=== PATIENT | female | born 1940 | race Caucasian/White ===

== ENCOUNTER 2017-08-22 14:57 | Emergency (ER) | payer MEDICARE ==
[2017-08-22 16:30] LABS: #Lymphocytes 0.8 thou/uL (1.20-3.40); #Monocytes 0.3 thou/uL (0.11-0.59); #Neutrophils 6.8 thou/uL (1.40-6.50); %Basophils 0.2 % (0.0-1.0); %Eosinophils 0.2 % (0.0-10.0); %Lymphocytes 9.9 % (21.0-51.0); %Monocytes 3.3 % (0.0-10.0); Hematocrit 48.2 % (36.0-47.0); Mean Platelet Volume 8.7 fL (7.4-10.4); Red Blood Cell (RBC) Count 5.16 mill/uL (4.20-5.40); White Blood Cell (WBC) Count 7.9 thou/uL (4.8-10.8)
[2017-08-22 16:40] LABS: Bilirubin Negative (Negative); Blood, Urine Large (Negative); Glucose, Urine (Dipstick) Negative (Negative); Ketone, Urine Trace mg/dL (Negative); Nitrite Negative (Negative); Protein, Urine (Dipstick) 100 mg/dL (Neg-Trace); Urobilinogen 0.2 mg/dL (0.2-1.0)
[2017-08-22 16:42] LABS: Bacteria/HPF None Seen HPF (None Seen); Hyaline Casts/LPF 0-3 HYALINE CAST LPF (0-3 Hyaline); RBC/HPF GREATER THAN 50-TNTC HPF (0-3); Squamous Epithelial 0-3 HPF (0-3)
[2017-08-22 16:49] LABS: ALT (SGPT) 12 U/L (8-55); AST (SGOT) 15 U/L (5-34); Alkaline Phosphatase 124 U/L (40-150); Anion Gap 15 mmol/L (10-20); BUN (Urea Nitrogen) 16 mg/dL (9.8-20.1); Bilirubin, Total 0.3 mg/dL (0.2-1.2); Calc. Creatinine Clearance 0 mL/min (70-130); Calcium 9.2 mg/dL (7.8-10.44); Carbon Dioxide 23 mmol/L (23-31); Chloride 101 mmol/L (98-107); Estimated GFR-MDRD 60; Globulin 3.2 g/dL (2.4-3.5); Protein, Total 7.4 g/dL (6.0-8.3)
== END 2017-08-22 17:25 | disposition home or self-care (01) ==
LOC: ERS 14:57
DX: N39.0 Urinary tract infection, site not specified (principal); F17.210 Nicotine dependence, cigarettes, uncomplicated; I10 Essential (primary) hypertension; I25.3 Aneurysm of heart; R56.9 Unspecified convulsions; Z79.899 Other long term (current) drug therapy
CPT/HCPCS: 36415; 80053; 81003; 81015; 85025; 87086; 93005

== ENCOUNTER 2017-10-09 07:58 | Outpatient (CLI) | payer MEDICARE ==
--- NOTE | 2017-10-09 10:11 | CT ---
CT ABDOMEN AND PELVIS WITH AND WITHOUT IV CONTRAST: History: Hematuria. FINDINGS: Each renal collecting system, and urinary bladder are decompressed without stone evident. No filling defects are apparent within the urinary system on the delayed images. No renal masses are visible. Calcified granulomata within the solid organs are consistent with healed granulomatous disease. Lobul ated cyst is noted within the left liver lobe lateral segment. Small hiatal hernia is visible. There are prominent degenerative changes of the lumbar spine. Diverticula arise from the colon without miguel cent inflammation. Dystrophic calcifications are present within the right lower gluteus subcutaneous tissues. There is prominent calcification throughout the arterial structures. 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 Fusiform dilatation of a lower abdominal aorta measures up to 4.9 c m AP diameter and extends to the aortic bifurcation. IMPRESSION: 1. No urinary tract abnormalities are demonstrated to explain hematuria. 2. Fusiform lower abdominal aortic aneurysm, 4.9 cm. 3. Atherosclerosis. 4. Diverticulosis. No evidence of diverticulitis. 5. Small hiatal hernia. POS: [facility]
[2017-10-09] MEDS ORDERED: ISOVUE-370 76%-LOCM 1 ML ONE (16:01)
== END 2017-10-09 07:59 | disposition home or self-care (01) ==
LOC: CT 07:58
PROVIDERS: ATTEND Urology
DX: R31.0 Gross hematuria (principal); I70.90 Unspecified atherosclerosis; K44.9 Diaphragmatic hernia without obstruction or gangrene; I71.4 Abdominal aortic aneurysm, without rupture; K57.90 Diverticulosis of intestine, part unspecified, without perforation or abscess without bleeding
CPT/HCPCS: 74178

== ENCOUNTER 2017-11-18 09:34 | Outpatient (CLI) | payer MEDICARE ==
[2017-11-18 11:18] LABS: Mean Corpuscular HGB CONC 32.6 g/dL (32.0-36.0); Mean Corpuscular Hemoglobin 30.3 pg (27.0-31.0); Mean Platelet Volume 8.7 fL (7.4-10.4); Platelet Count 175 thou/uL (130-400); RBC Distribution Width 12.7 % (11.5-14.5); Red Blood Cell (RBC) Count 4.96 mill/uL (4.20-5.40); White Blood Cell (WBC) Count 7.3 thou/uL (4.8-10.8)
[2017-11-18 11:42] LABS: Anion Gap 10 mmol/L (10-20); BUN (Urea Nitrogen) 14 mg/dL (9.8-20.1); Calc. Creatinine Clearance 0 mL/min (70-130); Calcium 9.3 mg/dL (7.8-10.44); Carbon Dioxide 28 mmol/L (23-31); Chloride 103 mmol/L (98-107); Estimated GFR-MDRD 71; Glucose 107 mg/dL (83-110); Potassium 4.4 mmol/L (3.5-5.1); Sodium 137 mmol/L (136-145)
--- NOTE | 2017-11-18 13:11 | RAD ---
TWO VIEW CHEST: HISTORY: Preoperative evaluation. FINDINGS: Mild hyperexpansion with some flattening of the diaphragms. The lung corona appear clear. Vascular markings are normal. Heart size is upper normal. Aortic calcification is seen. Vascular markings a re normal. Mild degenerative changes throughout the spine. IMPRESSION: There are chronic changes, as described above. No acute lung process identified. POS: [facility]
== END 2017-11-18 09:35 | disposition home or self-care (01) ==
LOC: LABBT 09:34
PROVIDERS: ATTEND Urology
DX: Z01.818 Encounter for other preprocedural examination (principal); N32.89 Other specified disorders of bladder
CPT/HCPCS: 71046; 80048; 81001; 85027

== ENCOUNTER 2017-11-26 06:41 | Day surgery (SDC) | payer MEDICARE ==
[2017-11-18 10:04] VITALS: BMI 25.7
[2017-11-26] MEDS ORDERED: ADMIXTURE FEE IV SCH (07:45)
[2017-11-26] MEDS ORDERED: SODIUM CHLORIDE IV SCH (07:45)
[2017-11-26] MEDS ORDERED: CEFAZOLIN 1 GM, Syringe 2.5 ML in Sterile Water 7.5 ML SLOW IVP SCH (07:45)
[2017-11-26] MEDS ORDERED: MITOMYCIN IV SCH (07:45)
[2017-11-26] MEDS ORDERED: Fentanyl 250 MCG/5 ML VIAL ONE ×2 (09:51→11:36)
[2017-11-26] MEDS ORDERED: Iothalamate Meglumine 60% 50 ML VIAL FS ONE (10:48)
--- NOTE | 2017-11-26 12:10 | OP ---
DATE OF PROCEDURE: 11/26/2017 PREOPERATIVE DIAGNOSIS: Bladder tumor. POSTOPERATIVE DIAGNOSIS: Bladder tumor. PROCEDURES PERFORMED: Cystoscopy; transurethral resection of bladder tumor, less than 2 cm; bladder biopsies; fulguration; mitomycin. SURGEON: Dr. Matt. ANESTHESIA: General with laryngeal mask airway. FINDINGS: Small right bladder tumor, removed via cold biopsy. SPECIMENS: Base of right bladder tumor and the biopsies to include right and left wall dome, posteri or and trigone. COMPLICATIONS: No complications. ESTIMATED BLOOD LOSS: No blood loss. DRAIN: Remaining was a 16-Togolese Emerson with mitomycin soaks clamped. INDICATIONS: The patient is a 77-year-old female, who was found in the office and noted to have rigoberto turia and a small bladder tumor was noted. So, she was set up for resection. The patient was brought into the room by Anesthesia, laid in the table in supine position. After rec eiving general anesthetic, her legs were placed in lithotomy position. Her perineum was prepped and draped in sterile fashion. Using a 22-Togolese cystoscope and 30-degree lens, it was traversed and the bladder inspected. No other lesions were noted other than the right bladder tumor, which appeared t o be 1.5 cm and lateral to the UO. Bladder biopsies were taken first and these were sent for specime n. Then, the tumor itself was grasped with a grasper and removed in one resection. At this point, I changed to the resectoscope in order to fulgurate the bladder biopsy as well as get a deeper resecti on of the bladder tumor; however, just a small component of coagulation electricity elicited the obtu rator reflex. So, at this point, I felt it was safer to just get the cold cup biopsy and get deeper resection there, so I did this and then sent the deeper portions of the right tumor bladder base and the resectoscope was put back in and all the area was fulgurated. This was in line of the transmural ureter, so I monitored the UO and ensured that clear effuse came out without difficulty and it was n oted prior to ending the case. So, at this point, the scope was removed. A 16-Togolese Emerson was plac ed and bladder drained and then 40 mg mitomycin was instilled and clamped and it would be so in the p ostoperative period for an hour. The patient tolerated procedure well and was then awakened and ladd sferred to the PACU in stable condition.
[2017-11-26] MEDS ORDERED: Promethazine HCl 25 MG/ML VIAL IM/IV PRN (12:40)
[2017-11-26] MEDS ORDERED: Non-Formulary Medication 1 EACH PO PRN (12:40)
[2017-11-26] MEDS ORDERED: Ondansetron HCl/PF 4 MG/2 ML Vial IVP PRN (12:40)
[2017-11-26] MEDS ORDERED: Dexamethasone 20 MG/5 ML VIAL ONE (13:54)
[2017-11-26] MEDS ORDERED: ePHEDrine/0.9% NaCl/PF SYRINGE 50 mg/10 ml ONE (13:54)
[2017-11-26] MEDS ORDERED: PROPOFOL 200 MG/20 ML VIAL ONE (13:54)
[2017-11-26] MEDS ORDERED: Ondansetron HCl/PF 4 MG/2 ML Vial ONE (13:54)
[2017-11-26] MEDS ORDERED: Lidocaine 1% PF 5 ML VIAL ONE (13:54)
[2017-11-26] MEDS ORDERED: PHENYLEPHRINE-NS 100 MCG/ML 10 ML SYRINGE ONE (13:54)
== END 2017-11-26 13:48 | disposition home or self-care (01) ==
LOC: SDC 06:41
PROVIDERS: ATTEND Urology
PROC: 0TBB8ZX Excision of Bladder, Via Natural or Artificial Opening Endoscopic, Diagnostic (ICD-10-PCS; principal; 2017-11-26)
DX: C67.2 Malignant neoplasm of lateral wall of bladder (principal); I10 Essential (primary) hypertension; E78.5 Hyperlipidemia, unspecified; M19.90 Unspecified osteoarthritis, unspecified site; G40.909 Epilepsy, unspecified, not intractable, without status epilepticus; F17.210 Nicotine dependence, cigarettes, uncomplicated; I71.4 Abdominal aortic aneurysm, without rupture; Z87.440 Personal history of urinary (tract) infections; Z79.02 Long term (current) use of antithrombotics/antiplatelets; Z79.899 Other long term (current) drug therapy
CPT/HCPCS: 52234; 96374; J9280; 88305; A4216; C1758; J0690; J1100; J2001; J2405; J2704; J3010; J7050; Q9961

== ENCOUNTER 2017-12-25 10:58 | Observation (INO) | payer MEDICARE ==
[2017-12-25 11:53] LABS: #Lymphocytes 0.8 thou/uL (1.20-3.40); #Monocytes 0.2 thou/uL (0.11-0.59); %Basophils 0.4 % (0.0-1.0); %Eosinophils 0.2 % (0.0-10.0); %Lymphocytes 11.1 % (21.0-51.0); %Monocytes 3.1 % (0.0-10.0); %Neutrophils 85.2 % (42.0-75.0); Hemoglobin 16.5 g/dL (12.0-16.0); Mean Corpuscular Hemoglobin 30.6 pg (27.0-31.0); Mean Corpuscular Volume 89.9 fl (81.0-99.0); Mean Platelet Volume 8.4 fL (7.4-10.4); Platelet Count 182 thou/uL (130-400); RBC Distribution Width 12.7 % (11.5-14.5); White Blood Cell (WBC) Count 7.1 thou/uL (4.8-10.8)
[2017-12-25 12:03] LABS: PTT 34.7 SEC (22.9-36.1); Prothrombin Time 13.5 SEC (12.0-14.7)
[2017-12-25 12:06] LABS: Bilirubin Negative (Negative); Blood, Urine Trace (Negative); Clarity CLEAR (Clear); Glucose, Urine (Dipstick) 100 mg/dL (Negative); Leukocyte Negative (Negative); Nitrite Negative (Negative); Protein, Urine (Dipstick) 300 mg/dL (Neg-Trace); Specific Gravity, Urine 1.011 (1.002-1.036); Urobilinogen 0.2 mg/dL (0.2-1.0); pH, Urine 7.5 (5.0-9.0)
[2017-12-25 12:08] LABS: Bacteria/HPF None Seen HPF (None Seen); Hyaline Casts/LPF 0-3 HYALINE CAST LPF (0-3 Hyaline); Squamous Epithelial 0-3 HPF (0-3)
[2017-12-25 12:15] LABS: ALT (SGPT) 15 U/L (8-55); AST (SGOT) 17 U/L (5-34); Albumin 4.6 g/dL (3.4-4.8); Alkaline Phosphatase 132 U/L (40-150); Anion Gap 12 mmol/L (10-20); BUN (Urea Nitrogen) 13 mg/dL (9.8-20.1); Bilirubin, Total 0.3 mg/dL (0.2-1.2); Calc. Creatinine Clearance 0 mL/min (70-130); Calcium 9.5 mg/dL (7.8-10.44); Carbon Dioxide 28 mmol/L (23-31); Chloride 98 mmol/L (98-107); Estimated GFR-MDRD 69; Globulin 3.1 g/dL (2.4-3.5); Glucose 180 mg/dL (83-110); Potassium 3.9 mmol/L (3.5-5.1); Protein, Total 7.7 g/dL (6.0-8.3); Sodium 134 mmol/L (136-145)
[2017-12-25 12:20] LABS: CKMB 1.2 ng/mL (0-6.6); Troponin I Less than 0.010 ng/mL (< 0.028)
[2017-12-25 12:22] LABS: Renal Epithelial None Seen HPF (0-3); Transitional Epithelial NONE SEEN HPF (0-3)
[2017-12-25 14:28] LABS: Barbiturates Screen Detected (NotDetected); Medtox Reader # READER 1
[2017-12-25 14:29] LABS: Amphetamine Not Detected (NotDetected); Benzodiazepine Screen Not Detected (NotDetected); Cocaine Metabolite Screen Not Detected (NotDetected); Medtox Control Line Valid? VALID (VALID); Methadone Not Detected (NotDetected); Methamphetamine Not Detected (NotDetected); Opiate Screen Not Detected (NotDetected); Oxycodone Screen Not Detected (NotDetected); Phencyclidine (PCP) Not Detected (NotDetected); THC/Cannabinoid Screen Not Detected (NotDetected); Tricyclic Screen Not Detected (NotDetected)
--- NOTE | 2017-12-25 14:40 | CT ---
CT HEAD NONCOTNRAST: HISTORY: Difficulty speaking. FINDINGS: No comparison. There is no evidence of acute intracranial hemorrhage or infarct. Mild diffuse corti gena atrophy is evident. There is no mass effect or shift of midline structures. Visualized paranasa l sinuses remain well aerated. IMPRESSION: No acute intracranial abnormalities are demonstrated on noncontrast CT head. Findings were called to Janki to relay to Dr. Velázquez in the emergency department at 1149 hours. CODE CR POS: [facility]
[2017-12-25 14:42] LABS: Troponin I Less than 0.010 ng/mL (< 0.028)
--- NOTE | 2017-12-25 14:53 | CT ---
CT ARTERIOGRAM NECK WITH IV CONTRAST AND 3D MIP IMAGING CT ARTERIOGRAM HEAD WITH IV CONTRAST AND 3D MIP IMAGING: HISTORY: CVA. Facial droop. FINDINGS: Heterogeneous low-density nonspecific nodules are present with each thyroid lobe. There are degenera tive changes of the cervical spine. Emphysematous changed at the lung apices are apparent. Normal branching of the great vessels from the aortic arch is apparent with moderate arterial calcifi cation. Good contrast flow was present into each vertebral artery and each carotid system. Mild calcification of the right carotid bifurcation with less than 50% stenosis. Internal carotid ar tirso is patent. Mild to moderate calcification left carotid bifurcation with no significant stenosis. Mild intracranial internal carotid artery calcification. [place] is patent. Good flow is d emonstrated into the cerebral and cerebellar arteries. No focal aneurysm or stenosis are visible. IMPRESSION: 1. Atherosclerosis. No acute embolic event is evident. There is less than 50% stenosis left international account manager al carotid artery. 2. Chronic obstructive pulmonary disease. Findings were called to Dr. Velázquez in the emergency department at 1211 hours. CODE CR POS: [facility]
[2017-12-25] MEDS ORDERED: ISOVUE-370 76%-LOCM 1 ML ONE (14:57)
[2017-12-25 15:42] LABS: Lactic Acid 1.8 mmol/L (0.5-2.2)
[2017-12-25 17:50] LABS: Troponin I 0.012 ng/mL (< 0.028)
[2017-12-25 17:56] VITALS: BMI 26.3
[2017-12-25] MEDS ORDERED: Acetaminophen 325 MG TAB PO PRN (18:22)
[2017-12-25] MEDS ORDERED: Ondansetron ODT 4 MG TAB SL PRN (18:22)
[2017-12-25] MEDS ORDERED: Ondansetron HCl/PF 4 MG/2 ML Vial IVP PRN ×2 (18:22→20:45)
[2017-12-25] MEDS ORDERED: Ondansetron ODT 4 MG TAB PO PRN (20:45)
[2017-12-25] MEDS ORDERED: Acetaminophen 500 MG TAB PO PRN (20:45)
[2017-12-25] MEDS ORDERED: hydrALAZINE 20 MG/ML VIAL SLOW IVP PRN (20:45)
[2017-12-25] MEDS ORDERED: Docusate 100 MG CAP PO SCH (21:00)
[2017-12-25] MEDS ORDERED: Atorvastatin Calcium 40 MG TAB PO SCH (21:00)
[2017-12-25] MEDS: levETIRAcetam 500 MG TAB PO SCH (21:20)
[2017-12-25] MEDS: Famotidine 20 MG TAB PO SCH (21:20)
[2017-12-26 05:52] LABS: Anion Gap 7 mmol/L (10-20); BUN (Urea Nitrogen) 12 mg/dL (9.8-20.1); Calc. Creatinine Clearance 68 mL/min (70-130); Calcium 8.7 mg/dL (7.8-10.44); Carbon Dioxide 27 mmol/L (23-31); Cardiac Risk 3.2 (Less than 4.5); Chloride 107 mmol/L (98-107); Cholesterol 175 mg/dl (< 200 Desired); Estimated GFR-MDRD 70; Glucose 96 mg/dL (83-110); HDL Cholesterol 54 mg/dL (>60 Neg Risk); LDL Cholesterol, Calculated 102 mg/dL; Potassium 3.7 mmol/L (3.5-5.1); Sodium 137 mmol/L (136-145); Triglycerides 97 mg/dL (Less than 150)
[2017-12-26 05:57] LABS: Hemoglobin 14.1 g/dL (12.0-16.0); Lymphocytes 29 % (21-51); MDiff Complete? YES; Mean Corpuscular HGB CONC 33.7 g/dL (32.0-36.0); Mean Corpuscular Hemoglobin 30.2 pg (27.0-31.0); Mean Corpuscular Volume 89.8 fl (81.0-99.0); Mean Platelet Volume 8.5 fL (7.4-10.4); Monocytes 3 % (0-10); Neutrophil 68 % (42-75); PLT Morphology Comment Appears Adequate; Platelet Count 163 thou/uL (130-400); RBC Distribution Width 12.6 % (11.5-14.5); Red Blood Cell (RBC) Count 4.67 mill/uL (4.20-5.40); White Blood Cell (WBC) Count 7.6 thou/uL (4.8-10.8)
--- NOTE | 2017-12-26 08:07 | HP ---
DATE OF ADMISSION: 12/25/2017 PRIMARY CARE PROVIDER: Lindsey Denny M.D. CHIEF COMPLAINT: Altered mentation and confusion. HISTORY OF PRESENT ILLNESS: This is a 77-year-old female who presents to [facility] accompanied by her daughter who witnessed the patient experiencing increasing episod es of difficulty with speech, altered mentation and confusion, which began in the morning hours of . The patient apparently was noted to speak repetitive words that were unrelated to the curr ent conversation or situation. The first episode lasted approximately a minute then resolve spontane ously. The daughter reports that her mother appeared to not recognize her and was not aware of her s urroundings. No specific grand mal seizure type activity, bowel or bladder incontinence. The patien t states the episode occurred again lasting several minutes, then resolving spontaneously. The daugh kvng became alarmed at what she was seeing, calling her primary care provider's office who directed he r to seek medical attention in the emergency room. The patient does have a history of petit mal seiz ures treated with Keppra and Dilantin over the last 2-3 years. The patient denies missing any specif ic doses or taking more than she should on her anti-seizure medications. The patient denies any rece nt new medication exposures, alcohol use or illicit drug use. The patient does states she underwent a cystoscopy several weeks prior to this evaluation in 11/2017 with resection of a bladder tumor. Th e patient states that she had been taken off her Plavix that she takes chronically over the last 4-5 years for approximately 7 days before and after the procedure. The patient states she is unclear of why she is on Plavix chronically since 2012. The patient denies any unilateral weakness, difficulty with visual disturbance, but did have repetitive speech and word phrases that were unrelated to the c ontext of conversation at that time this was noted. The patient denies any unilateral weakness, faci al droop or difficulty swallowing. In the emergency room, the patient underwent general evaluation i ncluding CT imaging of the brain including CT angiogram showing no acute process or focal stenosis. The patient received aspirin 324 mg as well as intravenous normal saline x1 liter. The patient was r eferred to the stroke unit for further evaluation. PAST MEDICAL HISTORY: 1. Tobacco abuse. 2. Hypertension. 3. History of petit mal seizures, treated with Dilantin and Keppra. 4. History of aneurysm, medically managed. 5. Diverticulosis. 6. Bladder tumor, status post resection. PAST SURGICAL HISTORY: 1. Status post appendectomy. 2. Status post hysterectomy. 3. Status post tonsillectomy. 4. Status post mole removal. 5. Status post resection of bladder tumor by cystoscopy. CURRENT MEDICATIONS: 1. Plavix 75 mg 1 tab p.o. daily. 2. Phenytoin 300 mg p.o. at bedtime. 3. Lipitor 20 mg p.o. daily. 4. Losartan 100 mg 1 tab p.o. daily. 5. Metoprolol 150 mg p.o. daily. 6. Keppra 500 mg p.o. b.i.d. 7. Docusate sodium 100 mg p.o. daily. ALLERGIES: No known drug allergies. FAMILY HISTORY: Father at 60 years of age. Mother at 60 years of age due to leuke silvia. SOCIAL HISTORY: The patient is . Accompanied by her daughter and granddaughter in the hospit al. Smokes up to a pack of cigarettes daily greater for 60 years. No alcohol or illicit drug use. Lives independently. Retired nurse. REVIEW OF SYSTEMS: The following complete review of systems was negative, unless otherwise mentioned in the HPI or below: Constitutional: Weight loss or gain, ability to conduct usual activities. Sk in: Rash, itching. Eyes: Double vision, pain. ENT/Mouth: Nose bleeding, neck stiffness, pain, te nderness. Cardiovascular: Palpitations, dyspnea on exertion, orthopnea. Respiratory: Shortness of breath, wheezing, cough, hemoptysis, fever or night sweats. Gastrointestinal: Poor appetite, abdom inal pain, heartburn, nausea, vomiting, constipation, or diarrhea. Genitourinary: Urgency, frequenc y, dysuria, nocturia. Musculoskeletal: Pain, swelling. Neurologic/Psychiatric: Anxiety, depressio n. Allergy/Immunologic: Skin rash, bleeding tendency. Otherwise negative except as stated per HPI. PHYSICAL EXAMINATION: VITAL SIGNS: On admission, blood pressure 168/94, pulse 86, respiratory rate 16, temperature 98.7 de grees Fahrenheit, O2 saturation 95% on room air. GENERAL APPEARANCE: This is a 77-year-old female, alert and oriented x3, pleasant, convers ant, talkative, in no acute distress. HEENT: Pupils are equal, round, and reactive to light and accommodation. Extraocular muscles are in tact. No scleral icterus, no conjunctival injection. Nares patent. OP is clear. Teeth in fair rep air. NECK: Supple, no cervical adenopathy, no thyromegaly, no carotid bruits, no JVD appreciated. Cervic al spine with full active and passive range of motion. No meningeal signs appreciated. CHEST: Lungs are clear to auscultation bilaterally. CARDIOVASCULAR: S1, S2, without noted murmur. ABDOMEN: Rounded, soft, nontender, nondistended. Bowel sounds are positive in all four quadrants. There is no hepatosplenomegaly, no abdominal bruits, no rebound or guarding appreciated. EXTREMITIES: Warm and dry with fair turgor. No clubbing, cyanosis or asymmetric edema appreciated. Pulses palpable distally at the dorsalis pedis, posterior tibial, and popliteal arteries bilaterally . Capillary refill less than 2 seconds. NEUROLOGIC: Cranial nerves II-XII are grossly intact. No focal or lateralizing signs appreciated. PERTINENT LABORATORY AND X-RAY FINDINGS: Sodium 134, potassium 3.9, chloride 98, CO2 of 28, BUN 13, creatinine 0.80, glucose 180. Lactic acid level 2.5, calcium 9.5. LFTs within normal limits. Tropo jerson negative x1. Albumin 3.6. TSH 1.41. Prolactin level 12.5. CBC showed a white blood cell count of 7.1, hemoglobin 16.5, hematocrit 49, platelet count 182 with 85% neutrophils. PT 13.5, INR 1.0, PTT 34.7. Urinalysis positive for protein, trace blood, 7-10 wbc's per high power field. Urine drug screen dated 12/25/[address] of the brain without contrast dated 8 showed no acute intracranial process. Mild diffuse cortical atrophy noted. CT angiogram of the he ad and neck dated 12/25/2017 showed no focal extremity showed atherosclerotic changes without acute e mbolic phenomenon. Less than 50% stenosis of the left internal carotid artery. EKG dated 12/25/2017 by my interpretation shows a sinus mechanism with heart rate in the 80s. Normal R-wave progression noted in the precordial leads. Right bundle branch block pattern noted. Normal axis. T-wave invers ion in leads III and F, also noted in leads V2 through V6. ASSESSMENT AND PLAN: 1. Acute encephalopathy, etiology unclear. Questionable metabolic influence. The patient will be o bserved on the Stroke Unit. We will continue to rule out transient ischemic attack as underlying tonja ology. Obtain MRI imaging of the brain. Check fasting lipid profile in the a.m. Check 2D transthor acic echocardiogram. Check Dilantin level in the a.m. 2. Transient ischemic attack. Question of transient ischemic attack as stated in #1. See #1 for wo rkup. We will consult Neurology Service for any further recommendations. 3. Seizure disorder. We will continue Keppra 500 mg p.o. b.i.d. and Dilantin 300 mg p.o. at bedtime . Check Dilantin level in the a.m. Consult Neurology Service for further evaluation and recommendat ions. 4. Hypertension. Resume home antihypertensive medication regimen and monitor clinical response. 5. Tobacco abuse. We will offer smoking cessation resources prior to discharge. 6. Prophylaxis. Sequential compression devices while in bed. Pepcid 20 mg p.o. b.i.d. 7. Code status is FULL. Surrogate medical decision maker is the patient's daughter.
[2017-12-26] MEDS: levETIRAcetam 500 MG TAB PO SCH (08:45)
[2017-12-26] MEDS: Famotidine 20 MG TAB PO SCH (08:45)
[2017-12-26] MEDS ORDERED: Clopidogrel Bisulfate 75 MG TAB PO SCH (09:00)
[2017-12-26] MEDS ORDERED: Losartan 25 MG TAB PO SCH (09:00)
[2017-12-26 15:50] VITALS: BP 159/64; TEMP 98.4
--- NOTE | 2017-12-26 19:19 | MRI ---
MRI OF BRAIN WITHOUT CONTRAST 12/26/17 Multiplanar and multisequential imaging of the brain obtained. HISTORY: Mental status change. TIA. Correlation made to recent CT. FINDINGS: The brain shows mild cortical volume loss. Ventricles have normal size and position. Mild chronic isc hemic white matter change. No evidence of restricted diffusion. No acute infarct identified. No evide nce of mass or edema. Intracranial internal carotid arteries, proximal cerebral arteries and basilar arteries show flow voids. Paranasal sinuses are clear. Mucosal edema is seen in the right mastoid air cells. Dural venous sinuses are patent. IMPRESSION: Mild cortical atrophy and mild to moderate chronic ischemic white matter change. No evidence of acute infarct. POS: [facility]
--- NOTE | 2017-12-26 23:17 | CON ---
DATE OF CONSULTATION: 12/26/2017 ADMITTING PHYSICIAN: Dr. Philip Fitzpatrick. REASON FOR CONSULTATION: Altered mental status. HISTORY OF PRESENT ILLNESS: Ms. Villanueva is a pleasant 77-year-old female with history o f seizure disorder on Dilantin and Keppra, presented with episode of confusion. History is obtained from daughter who was present at bedside. Daughter reports that yesterday, they were sitting down at home and suddenly, she stopped responding. She was moving her right hand to change channel on the T V, but there is no remote control in her hand. When she called out her name, she did not respond. S he was confused. This episode lasted for approximately 1-2 minutes and then resolved. She had no re collection of this event. Few hours later, she had another event, which was similar in nature, whic h prompted her to call her primary care physician who advised her to seek medical attention in to the emergency room. Patient was brought to the [facility] emergency room while she was waiting in the [facility] room, she had another episode of confusion, which lasted approximately 2 to 3 minutes. There were no tonic-clonic convulsions, no tongue biting, no loss of bladder control. She had a retrograde amnesia of the event. She did not have any more spells since that time she did not recognize her da ughter until after a few minutes. There was again no tongue biting, no loss of bladder control, or l oss of consciousness with this episode. PAST MEDICAL HISTORY: Significant for hypertension, history of seizure disorder, history of aneurysm , diverticulosis, bladder tumor, status post resection. PAST SURGICAL HISTORY: Significant for appendectomy, hysterectomy, tonsillectomy, bladder resection. CURRENT MEDICATIONS: Include Plavix 75 mg daily, Dilantin 300 mg at bedtime, Lipitor 20 mg daily, lo sartan 100 mg daily, metoprolol 150 mg daily, Keppra 500 mg b.i.d. and Docusate 100 mg daily. ALLERGIES: No known drug allergies. FAMILY HISTORY: Significant for daughter with history of seizure. SOCIAL HISTORY: She is a . She denies alcohol use or illicit drug use. She does smoke half to a pack of cigarettes on a daily basis. REVIEW OF SYSTEMS: As mentioned, which was negative. PHYSICAL EXAMINATION: VITAL SIGNS: Blood pressure 159/64, pulse of 63, temperature of 98.4, respirations of 16, O2 sats 95 % on room air. GENERAL: Well-developed, well-nourished female in no apparent distress. RESPIRATORY: Clear to auscultation bilaterally. CARDIOVASCULAR: Regular rate and rhythm. NEUROLOGIC: Mental status: The patient is awake, alert, oriented x3. Speech and language: Fluent speech. Cranial nerves: Pupils are 3 mm and reactive. Visual corona are intact. No sore muscles a re intact. No nystagmus noted. Face is symmetric. Tongue and uvula are midline. Motor exam showed normal tone and bulk with 5/5 strength in both upper and lower extremities. Sensory: Sensation is intact and symmetric. Deep tendon reflexes 2+ reflexes in both upper and lower extremities. [place] i: Plantar responses flexion bilaterally. Coordination intact to fozicx-szke-eyihpg and finger yaniv ing bilaterally. Gait and Romberg are normal. LABORATORY DATA: Reviewed, which included CBC, CMP, lipid profile, urinalysis and urine drug screen, which is significant for hemoglobin of 16.5, hematocrit of 48.5, otherwise unremarkable. IMAGING STUDIES: MRI brain without contrast was reviewed for which official report is still pending. I did not appreciate any acute intracranial abnormality. CT angiogram of the head and neck were re viewed, which showed no hemodynamically significant intracranial or extracranial vascular abnormality . IMPRESSION: Episode of confusion, likely complex partial seizure. ASSESSMENT AND PLAN: Ms. Villanueva is a pleasant 77-year-old female, who presented with a n episode of confusion based on the description of the spell, this is likely complex partial seizure. At this time, I would recommend increasing the Keppra to 750 mg twice daily. I will recommend cont inue on Dilantin 300 mg at bedtime. She is okay to be discharged to home with outpatient followup ap pointment in my clinic in 4 to 6 weeks.
--- NOTE | 2017-12-27 04:39 | DIS ---
DATE OF ADMISSION: 12/25/2017 DATE OF DISCHARGE: 12/26/2017 DISCHARGE DIAGNOSES: 1. Acute encephalopathy, questionable etiology, likely related to seizure disorder. 2. Seizure disorder with recurrence. 3. Hypertension, stable. 4. Tobacco abuse. CONSULTATIONS: Dr. Carol Bermudez with Neurology Service. PERTINENT LABORATORY AND X-RAY FINDINGS: Complete metabolic profile within normal limits. Lactic ac id level 2.5. TSH 1.41. Prolactin level 12.5, total cholesterol 175, triglycerides 97, HDL 54, LDL 102. CBC showed white blood cell count ranging between 7.1-7.6, hemoglobin ranged between 14.1-16.5. Urine drug screen positive for barbiturates. Phenytoin level 4.9. CT of the brain without contras t dated 12/25/2017 showed no acute intracranial process. CT angiogram of the head and neck showed no evidence of focal stenosis. Atherosclerosis without evidence of acute embolic event noted. MRI of the brain dated 12/26/2017 showed no acute intracranial process. HOSPITAL COURSE: The patient was observed on the stroke unit after initially presenting with altered mentation and concern for TIA. The patient underwent TIA workup in addition to evaluation for poten tial recurrent seizures. The patient with a history of seizures on phenytoin and Keppra. Neuro imag ing was essentially unremarkable as to structural defect and metabolic workup was unrevealing. A 2D transthoracic echocardiogram was performed; however, results are pending at the time of this dictatio n. Telemetry monitoring showed a sinus mechanism without evidence of acute arrhythmia or dysrhythmia . The patient was evaluated by the Neurology Service with current recommendations to increase Keppra to 750 mg b.i.d. The patient will follow up on an outpatient basis with Neurology Service after dis charge. Overall, the patient remained clinically stable during the hospital course, tolerating regul ar oral intake, and ambulating without assistance or difficulty. I have examined the patient at the time of discharge and discussed lab and x-ray findings, as well as plans for discharge. The patient and family are in agreement and ready for discharge on 12/26/2017. DISCHARGE MEDICATIONS: 1. Lipitor 20 mg 1 tab p.o. daily. 2. Plavix 75 mg 1 tab p.o. daily. 3. Docusate sodium 100 mg p.o. at bedtime. 4. Keppra 750 mg p.o. b.i.d. 5. Losartan 100 mg p.o. daily. 6. Metoprolol succinate 150 mg p.o. at bedtime. 7. Phenytoin 300 mg p.o. at bedtime. FOLLOWUP: The patient will follow up with her primary care provider, Dr. Lindsey Denny within 7 d ays of discharge. The patient will follow up with Dr. Carol Bermudez 2-3 weeks after discharge. CONDITION ON DISCHARGE: Stable. ACTIVITY: Ad-jasiel. DIET: Heart healthy. CODE STATUS: FULL. DISPOSITION: Home on 12/26/2017.
--- NOTE | 2017-12-28 19:59 | EKG ---
Test Reason : Blood Pressure : / mmHG Vent. Rate : 087 BPM Atrial Rate : 087 BPM P-R Int : 156 ms QRS Dur : 120 ms QT Int : 410 ms P-R-T Axes : 085 071 -15 degrees QTc Int : 493 ms Sinus rhythm with Premature atrial complexes with Abberant conduction Possible Left atrial enlargement Right bundle branch block Cannot rule out Inferior infarct , age undetermined T wave abnormality, consider lateral ischemia Abnormal ECG Confirmed by BLAYNE SANDY ([id number]), graphics editor LINA BARTLETT ([id number]) on 12/28/2017 7:59:20 PM Referred By: Confirmed By:BLAYNE SANDY
== END 2017-12-26 20:07 | disposition home or self-care (01) ==
LOC: ERS 10:58 → 2SE 16:37
PROVIDERS: ADMIT Family Medicine; ATTEND Family Medicine
DX: Z79.899 Other long term (current) drug therapy; G93.40 Encephalopathy, unspecified; I10 Essential (primary) hypertension; G40.909 Epilepsy, unspecified, not intractable, without status epilepticus; F17.210 Nicotine dependence, cigarettes, uncomplicated
CPT/HCPCS: 70450; 70496; 70498; 70551; 80048; 80061; 80185; 80306; 82140; 82553; 82962; 83605; 84146; 84484 ×2; 85007; 85027; 85610; 85730; 93005; 93306; 94760; 96360; 96361; 99285; G0378; 36415; 36416; 80053; 81003; 81015; 84443; 85025

== ENCOUNTER 2018-11-09 12:18 | Emergency (ER) | payer MEDICARE ==
[2018-11-09] MEDS ORDERED: Sodium Chloride 0.9% 100 ML ONE (13:07)
[2018-11-09] MEDS ORDERED: cefTRIAXone\\ROCEPHIN 2 GM VIAL ONE (13:07)
[2018-11-09 13:16] LABS: #Eosinphils 0.1 thou/uL (0.0-0.7); #Lymphocytes 1.6 thou/uL (1.20-3.40); #Monocytes 0.6 thou/uL (0.11-0.59); #Neutrophils 5.4 thou/uL (1.40-6.50); %Basophils 0.5 % (0.0-1.0); %Eosinophils 1.2 % (0.0-10.0); %Lymphocytes 20.8 % (21.0-51.0); %Monocytes 7.4 % (0.0-10.0); %Neutrophils 70.1 % (42.0-75.0); Hemoglobin 16.6 g/dL (12.0-16.0); Mean Corpuscular HGB CONC 34.5 g/dL (32.0-36.0); Mean Corpuscular Volume 87.1 fL (78.0-98.0); Mean Platelet Volume 9.1 fL (7.4-10.4); Platelet Count 200 thou/uL (130-400); RBC Distribution Width 11.7 % (11.5-14.5); Red Blood Cell (RBC) Count 5.52 mill/uL (4.20-5.40); White Blood Cell (WBC) Count 7.6 thou/uL (4.8-10.8)
[2018-11-09 13:33] LABS: ALT (SGPT) 15 U/L (8-55); AST (SGOT) 16 U/L (5-34); Albumin 4.1 g/dL (3.4-4.8); Alkaline Phosphatase 127 U/L (40-150); Anion Gap 14 mmol/L (10-20); BUN (Urea Nitrogen) 13 mg/dL (9.8-20.1); Bilirubin, Total 0.3 mg/dL (0.2-1.2); Calc. Creatinine Clearance 0 mL/min (70-130); Calcium 9.5 mg/dL (7.8-10.44); Carbon Dioxide 25 mmol/L (23-31); Chloride 106 mmol/L (98-107); Estimated GFR-MDRD 63; Globulin 3.1 g/dL (2.4-3.5); Glucose 145 mg/dL (83-110); Potassium 3.9 mmol/L (3.5-5.1); Protein, Total 7.2 g/dL (6.0-8.3); Sodium 141 mmol/L (136-145)
--- NOTE | 2018-11-09 13:38 | RAD ---
2 VIEW CHEST: Date: 11/09/18 INDICATION: Cough. COMPARISON: 11/18/17. FINDINGS: Lungs are hyperinflated. There is patchy left basilar density. Mild pleural based density seen at the inferior right chest. Cardiac silhouette is mildly enlarged. There is vascular calcification. [place]se[place] s degenerative changes are present. IMPRESSION: 1. Patchy left basilar density indicative of pneumonia. 2. COPD. 3. Mild pleural based density inferior right chest may be related to pleural thickening or small vol ume pleural fluid with adjacent atelectasis. POS: [facility]
[2018-11-09] MEDS ORDERED: Azithromycin 500 MG VIAL ONE (14:04)
[2018-11-09 14:11] LABS: Base Excess-Venous -0.2 mmol/L (-2.0 to 3.0); Bicarbonate (HCO3v) 24.6 mmol/L (22.0-28.0); CO2 Tension (PvCO2) 39.8 mmHg (40.0-50.0); Calcium, Ionized 1.05 mmol/L (See Comments:); Chloride 109 mmol/L (98-107); Hemoglobin - Calc 16.9 g/dL (12.0-16.0); O2 Tension (PvO2) 53.5 mmHg (35.0-45.0); Potassium 3.8 mmol/L (3.5-5.1); Sodium 141 mmol/L (138-145); T. Carbon Dioxide 25.8 mmol/L (22.0-28.0); pH (Venous) 7.399 (7.320-7.430); vO2 Saturation-calc 87.4 % (60.0-85.0)
== END 2018-11-09 15:39 | disposition home or self-care (01) ==
LOC: SCSER 12:18
DX: J18.1 Lobar pneumonia, unspecified organism (principal); F17.210 Nicotine dependence, cigarettes, uncomplicated; Z71.6 Tobacco abuse counseling; Z79.899 Other long term (current) drug therapy; I10 Essential (primary) hypertension
CPT/HCPCS: 36415; 71046; 80053; 82330; 82803; 83605; 85025; 87040; 94640; 94664; 96365; 96367; 99406; J0456; J0696; J7050; J7620

== ENCOUNTER 2019-05-05 17:13 | Emergency (ER) | payer MEDICARE | END 2019-05-05 18:26 | disposition left against medical advice (07) | LOC: ERS 17:13 | DX: Z53.21 Procedure and treatment not carried out due to patient leaving prior to being seen by health care provider (principal) ==

== ENCOUNTER 2019-05-05 18:43 | Emergency (ER) | payer MEDICARE ==
[2019-05-05] MEDS ORDERED: Fleet Enema 133 ML BOT ONE (19:27)
== END 2019-05-05 20:13 | disposition home or self-care (01) ==
LOC: SCSER 18:43
DX: K59.00 Constipation, unspecified (principal); I10 Essential (primary) hypertension; F17.210 Nicotine dependence, cigarettes, uncomplicated; Z79.899 Other long term (current) drug therapy
CPT/HCPCS: 99283

== ENCOUNTER 2020-02-18 17:36 | Observation (INO) | payer MEDICARE, OTHER ==
[2020-02-18] MEDS ORDERED: methylPREDNISolone Sod Succ/PF 125 MG/2 ML VIAL ONE (18:25)
[2020-02-18 18:40] LABS: #Eosinphils 0.2 thou/uL (0.0-0.7); #Lymphocytes 0.7 thou/uL (1.20-3.40); #Monocytes 0.7 thou/uL (0.11-0.59); #Neutrophils 10.7 thou/uL (1.40-6.50); %Basophils 0.2 % (0.0-1.0); %Eosinophils 1.4 % (0.0-10.0); %Lymphocytes 5.6 % (21.0-51.0); %Monocytes 5.7 % (0.0-10.0); %Neutrophils 87.1 % (42.0-75.0); Hemoglobin 16.1 g/dL (12.0-16.0); Mean Corpuscular HGB CONC 32.4 g/dL (32.0-36.0); Mean Corpuscular Hemoglobin 29.7 pg (27.0-31.0); Mean Corpuscular Volume 91.7 fL (78.0-98.0); Mean Platelet Volume 9.4 fL (7.4-10.4); Platelet Count 149 thou/uL (130-400); RBC Distribution Width 12.4 % (11.5-14.5); Red Blood Cell (RBC) Count 5.44 mill/uL (4.20-5.40); White Blood Cell (WBC) Count 12.2 thou/uL (4.8-10.8)
--- NOTE | 2020-02-18 19:02 | RAD ---
Portable frontal chest radiograph: 02/18/2020 COMPARISON: 11/09/2018 HISTORY: Productive cough FINDINGS: New perihilar and bibasilar interstitial prominence. Blunting of costophrenic angle suggest s small bilateral pleural effusions. No pneumothorax. No lobar consolidation. Heart and mediastinal contours are stable. There is atherosclerotic calcification of the aortic arch. IMPRESSION: New perihilar and bibasilar interstitial prominence. Small bilateral pleural effusions. F indings suggest pulmonary edema. Infectious pneumonitis is a possibility as well. Recommend follow-up imaging following treatment to document resolution.
[2020-02-18 19:12] LABS: ALT (SGPT) 12 U/L (8-55); AST (SGOT) 15 U/L (5-34); Albumin 4.2 g/dL (3.4-4.8); Alkaline Phosphatase 121 U/L (40-110); Anion Gap 16 mmol/L (10-20); BUN (Urea Nitrogen) 14 mg/dL (9.8-20.1); Bilirubin, Total 0.7 mg/dL (0.2-1.2); Calc. Creatinine Clearance 0 mL/min (70-130); Calcium 9.2 mg/dL (7.8-10.44); Carbon Dioxide 26 mmol/L (23-31); Chloride 99 mmol/L (98-107); Estimated GFR-MDRD 61; Globulin 3.3 g/dL (2.4-3.5); Glucose 143 mg/dL (83-110); Potassium 4.1 mmol/L (3.5-5.1); Protein, Total 7.5 g/dL (6.0-8.3); Sodium 137 mmol/L (136-145)
[2020-02-18] MEDS ORDERED: Azithromycin 500 MG VIAL ONE (19:36)
[2020-02-18] MEDS ORDERED: cefTRIAXone\\ROCEPHIN 2 GM VIAL ONE (19:36)
--- NOTE | 2020-02-18 20:50 | PDOC.FPRHP ---
- History of Present Illness Chief Complaint: SOB History of Present Illness: 79 yo pt with COPD comes in with worsening SOB. Started last night. Coughing clear and white stuff up. Denies any fever or chills. Denies any chest pain. Reports tingling from carpal tunnel. Pt takes prune juice at night for constipation. No UTI sx's reported since finishing abx. Reports being tx for UTI one week ago. Pt reports having headache this morning and states it was gone. Hasn't been around any sick contacts. Live at [facility]. No reported cases. PMH: Seizures- hasn't had one since on keppra 750 2x a day and dilantin 100mg 3 at night, Triple AAA- reports been awhile since had imaging, Removed tumor off bladder about year ago and going to [facility]. Medications: Keppra, Cholesterol meds, atorvastatin 40mg night, Plavix 75 mg nightly, Amlodipine 10 mg, Losartan 100 mg daily, Metoprolol 150 mg daily Total hysterectomy, appendectomy, tonsilectomy FH: Mother- lung cancer, Dad- heart dz \ SH: Smoke since age 15, Quit drinking since starting keppra, Denies illicit drug use. - Allergies/Adverse Reactions Allergies Allergy/AdvReac Type Severity Reaction Status Date / Time ciprofloxacin [From Cipro] Allergy Verified 02/18/20 23:21 - Home Medications Medication Instructions Recorded Confirmed Type Clopidogrel Bisulfate [Plavix] 75 mg PO DAILY 11/18/17 02/18/20 History Losartan Potassium 100 mg PO DAILY 11/18/17 02/18/20 History Metoprolol Succinate 1.5 tab PO HS 11/18/17 02/18/20 History Phenytoin Sodium Extended 300 mg PO HS 11/18/17 02/18/20 History levETIRAcetam [Keppra] 750 mg PO BID #0 12/26/17 02/18/20 Rx Amlodipine [Norvasc] 2 tab PO DAILY 02/18/20 02/18/20 History Atorvastatin Calcium [Lipitor] 40 mg PO HS 02/18/20 02/18/20 History Sennosides/Docusate Sodium 1 each PO HS 02/18/20 02/18/20 History [Docusate Sodium-Sennosides Tab] Comments: Reviewed medications and medications above are correct. - History PMHx: PSHx: FHx: Social: - Review of Systems General: denies: fever/chills, weight/appetite/sleep changes ENT: reports: rhinorrhea. denies: nasal congestion Respiratory: reports: cough, shortness of breath. denies: congestion, exercise intolerance Cardiovascular: reports: edema (reports some swelling in ankles last few days). denies: chest pain, palpitation, orthopnea Gastrointestinal: denies: nausea, vomiting, diarrhea, constipation, abdominal pain, GI bleeding Genitourinary: denies: incontinence, dysuria, polyuria Skin: reports: rashes. denies: lesions Musculoskeletal: denies: pain, tenderness Neurological: denies: numbness, seizure, weakness Psychological: denies: anxiety, depression - Vital signs BP: [182/90] HR: [85] RR: [25] Tmax: [100.3] Pox: [98]% on [2L] Wt: [68 kg] - Physical Exam Constitutional: awake, alert and oriented, well developed -Constitutional: Pt breathing a little fast HEENT: conjunctiva clear, no scleral icterus, grossly normal vision, grossly normal hearing, normal nasal mucosa, MMM Neck: supple, trachea midline, no JVD Heart: RRR, normal S1/S2, no murmurs/rubs/gallops, pulses present, no edema Lungs: good air movement, no rales/rhonchi, no wheezing, no retractions -Lungs: Some mild crackles noted in lower lobes. Pt tachypnic, reports feeling better Abdomen: soft, non-tender, bowel sounds present, no masses/distention, no hernias Musculoskeletal: ROM grossly normal Neurological: no focal deficit, normal sensation Skin: no rash/lesions, good turgor, capillary refill <2 seconds Heme/Lymphatic: no unusual bruising or bleeding Psychiatric: normal mood and affect, good judgment and insight, intact recent and remote memory FMR H&P: Results - Labs Result Diagrams: 02/19/20 05:05 02/18/20 18:20 Lab results: WBC 12.2 thou/uL (4.8-10.8) H 02/18/20 18:20 Hgb 16.1 g/dL (12.0-16.0) H 02/18/20 18:20 Hct 49.9 % (36.0-47.0) H 02/18/20 18:20 MCV 91.7 fL (78.0-98.0) 02/18/20 18:20 Plt Count 149 thou/uL (130-400) 02/18/20 18:20 Neutrophils % 87.1 % (42.0-75.0) H 02/18/20 18:20 Sodium 137 mmol/L (136-145) 02/18/20 18:20 Potassium 4.1 mmol/L (3.5-5.1) 02/18/20 18:20 Chloride 99 mmol/L (98-107) 02/18/20 18:20 Carbon Dioxide 26 mmol/L (23-31) 02/18/20 18:20 BUN 14 mg/dL (9.8-20.1) 02/18/20 18:20 Creatinine 0.89 mg/dL (0.6-1.1) 02/18/20 18:20 Glucose 143 mg/dL (83-110) H 02/18/20 18:20 Lactic Acid 1.5 mmol/L (0.5-2.2) 02/18/20 19:39 Calcium 9.2 mg/dL (7.8-10.44) 02/18/20 18:20 Total Bilirubin 0.7 mg/dL (0.2-1.2) 02/18/20 18:20 AST 15 U/L (5-34) 02/18/20 18:20 ALT 12 U/L (8-55) 02/18/20 18:20 Alkaline Phosphatase 121 U/L (40-110) H 02/18/20 18:20 B-Natriuretic Peptide 255.9 pg/mL (0-100) H 02/18/20 18:20 Serum Total Protein 7.5 g/dL (6.0-8.3) 02/18/20 18:20 Albumin 4.2 g/dL (3.4-4.8) 02/18/20 18:20 - Radiology Interpretation Chest x-ray Status: image reviewed by me, report reviewed by me Additional comment: New perihilar and bibasilar interstitial prominence. Small bilateral pleural effusions. Findings suggest pulmonary edema. Infectious penumonitis is a possibility as well. Recommend f/u imaging following tx to document resolution. FMR H&P: A/P - Problem List (1) COPD exacerbation Current Visit: Yes Status: Acute Code(s): J44.1 - CHRONIC OBSTRUCTIVE PULMONARY DISEASE W (ACUTE) EXACERBATION (2) Diastolic CHF Current Visit: Yes Status: Acute Code(s): I50.30 - UNSPECIFIED DIASTOLIC ( CONGESTIVE) HEART FAILURE (3) Sepsis Current Visit: Yes Status: Acute Code(s): A41.9 - SEPSIS, UNSPECIFIED ORGANISM (4) Hypertension Current Visit: Yes Status: Acute Code(s): I10 - ESSENTIAL (PRIMARY) HYPERTENSION (5) Seizure Current Visit: Yes Status: Acute Code(s): R56.9 - UNSPECIFIED CONVULSIONS (6) Abdominal aortic aneurysm Current Visit: Yes Status: Acute Code(s): I71.4 - ABDOMINAL AORTIC ANEURYSM , WITHOUT RUPTURE - Plan Sepsis 2/2 COPD exacerbation -WBC 12.2 and pt Tachypnic w/ RR in 20's. Likely source is infectious pneumonitis -Procal pending. Strep and legionella urinary ag pending. -COVID swab pending. -Rocephin and Azithromycin for tx -Prednisone 40 mg burst -Duonebs sal q4hr. q6hr prn as needed Diastolic CHF exacerbation -BNP elevated to 200 range. Reports some ankle swelling last few days. CXR shows some component of fluid overload. Likely contributing to SOB with COPD exacerbation. -ECHO 12/2017 showed preserved EF w/ grade 1/3 diastolic dysfunction -Repeat ECHO ordered -Administered 1 dose 20 mg IV lasix. If helps with resp status and pending echo may continue daily -strict I&Os HTN -continued home meds -BP elevated, continue to trend and adjust medications as needed -Hydralzine IV prn for pressures above systolic pressure above 180 Hx seizures -continue home meds Hx AAA Tobacco Abuse -counseled on cessation GERD ppx: tums prn DVT ppx: Lovenox Diet: HH Dispo: Admit for COPD exacerbation w/ likely combined mild component of fluid overload. COVID PUI. Await echo and monitor resp status FMR H&P: Upper Level - Plan Date/Time: 02/18/202046 I, [], have evaluated this patient and agree with findings/plan as outlined by international operations manager resident. Pertinent changes/additions are listed here. Addendum - Attending - Attending Attestation Date/Time: 02/19/201920 I personally evaluated the patient and discussed the management with Dr. Valadez last night. I agree with the History, Examination, Assessment and Plan documented above with any addition or exceptions noted below.
[2020-02-18] MEDS ORDERED: predniSONE 20 MG TAB PO SCH (22:41)
[2020-02-18] MEDS ORDERED: Acetaminophen 650 MG Suppository PR PRN (22:41)
[2020-02-18] MEDS ORDERED: Acetaminophen 325 MG TAB PO PRN (22:41)
[2020-02-18] MEDS ORDERED: Ondansetron ODT 4 MG TAB PO PRN (22:41)
[2020-02-18] MEDS ORDERED: Enoxaparin Sodium 40 MG/0.4 ML SYRINGE SC SCH (22:41)
[2020-02-18] MEDS ORDERED: Ondansetron PF 4 MG/2 ML Vial IVP PRN (22:41)
[2020-02-18] MEDS ORDERED: Calcium Carbonate 500 MG ChewTAB PO PRN (22:41)
[2020-02-18 23:04] VITALS: BMI 24.5
[2020-02-18] MEDS: Furosemide 20 MG/2 ML VIAL SLOW IVP SCH ×2 (23:06→23:35)
[2020-02-18] MEDS ORDERED: Albuterol 200 PUFF (6.7GM INHALER) INH PRN (23:09)
[2020-02-18] MEDS ORDERED: Albuterol 200 PUFF (6.7GM INHALER) INH SCH (23:15)
[2020-02-18 23:26] LABS: Troponin I 0.026 ng/mL (< 0.028)
[2020-02-19 02:23] LABS: Troponin I 0.011 ng/mL (< 0.028)
[2020-02-19] MEDS: Albuterol 200 PUFF (6.7GM INHALER) INH SCH ×6 (03:15→21:31)
[2020-02-19 05:52] LABS: #Eosinphils 0.1 thou/uL (0.0-0.7); #Lymphocytes 0.5 thou/uL (1.20-3.40); #Monocytes 0.3 thou/uL (0.11-0.59); #Neutrophils 11.8 thou/uL (1.40-6.50); %Basophils 0.1 % (0.0-1.0); %Eosinophils 0.4 % (0.0-10.0); %Monocytes 2.4 % (0.0-10.0); Hemoglobin 14.6 g/dL (12.0-16.0); Hypochromia SLIGHT = 6-15 cells (100X) (0-5/hpf); MDiff Complete? YES; Mean Corpuscular HGB CONC 29.6 g/dL (32.0-36.0); Mean Corpuscular Hemoglobin 27.7 pg (27.0-31.0); Mean Corpuscular Volume 93.6 fL (78.0-98.0); Mean Platelet Volume 9.2 fL (7.4-10.4); Platelet Count 151 thou/uL (130-400); Platelet Morphology Comment Appears Adequate; RBC Distribution Width 12.4 % (11.5-14.5); Red Blood Cell (RBC) Count 5.27 mill/uL (4.20-5.40); White Blood Cell (WBC) Count 12.6 thou/uL (4.8-10.8)
--- NOTE | 2020-02-19 07:13 | PDOC.FM ---
- Subjective Subjective: Ms. Villanueva says that her SOB has improved. Has chronic cough but has had some thicker mucous recently. Knows she has COPD but has never needed consistent inhalers. Says that she is going to stop smoking when she gets home. Had reported comprehensive pre-op eval by Dr. Bui that was normal per patient. - Objective Vital Signs & Weight: Vital Signs (12 hours) Temp Pulse Resp BP BP Pulse Ox 02/19/20 06:10 98.0 F 66 20 146/66 H 93 L 02/18/20 22:07 98.3 F 83 18 167/78 H 99 Weight Weight 68.991 kg Result Diagrams: 02/19/20 05:05 02/18/20 18:20 Phys Exam - Physical Examination Constitutional: NAD Respiratory: no wheezing (decreased breath sounds), clear to auscultation bilateral Cardiovascular: RRR, no significant murmur Gastrointestinal: soft, non-tender Musculoskeletal: no edema Neurological: non-focal Psychiatric: normal affect Skin: normal turgor Dx/Plan - Plan Plan: Sepsis 2/2 COPD exacerbation, improved -WBC 12.2 and pt Tachypnic w/ RR in 20's initially -Strep and legionella urinary ag pending. -COVID negative. Procal 0.1->0.1 will continue to trend. -Rocephin 02/17. Discontinue azithro -Prednisone 40 mg daily x5 days -Duonebs sal q4hr. q6hr prn as needed Diastolic CHF exacerbation -BNP elevated to 200 range. Reports some ankle swelling last few days. CXR shows some component of fluid overload. Likely contributing to SOB with COPD exacerbation. -ECHO 12/2017 showed preserved EF w/ grade 1/3 diastolic dysfunction -Request [facility] records as reportedly had complete normal workup a few months ago -Administered 1 dose 20 mg IV lasix. -strict I&Os HTN -continued home meds -Hydralzine IV prn for pressures above systolic pressure above 180 Hx seizures -continue home meds Hx AAA Tobacco Abuse -counseled on cessation GERD ppx: tums prn DVT ppx: Lovenox Diet: HH Dispo: Continue treatment for COPD exacerbation, requiring O2, continue to wean as tolerated. Addendum - Attending - Attending Attestation Date/Time: 02/19/20 [id number] I personally evaluated the patient and discussed the management with Dr. Dorman. I agree with the History, Examination, Assessment and Plan documented above with any addition or exceptions noted below. Patient here for hypoxia in setting of likely COPD exacerbation. She is not currently on medical therapy for this other than an "inhaler". She continues to smoke but reports desire to stop. We will continue abx, steroids, and monitor breathing status. COVID negative.
[2020-02-19] MEDS: Clopidogrel Bisulfate 75 MG TAB PO SCH (08:00)
[2020-02-19] MEDS: predniSONE 20 MG TAB PO SCH (08:00)
[2020-02-19] MEDS: Atorvastatin Calcium 20 MG TAB PO SCH ×2 (08:00→08:26)
[2020-02-19] MEDS: levETIRAcetam 500 MG TAB PO SCH ×2 (08:01→21:01)
[2020-02-19] MEDS: Losartan 25 MG TAB PO SCH (08:02)
[2020-02-19] MEDS ORDERED: Aspirin Chewable 81 MG TAB PO SCH (09:00)
[2020-02-19] MEDS ORDERED: Azithromycin 250 MG TAB PO SCH (09:00)
[2020-02-19 10:43] LABS: SARS-CoV-2 MS2 Positive; SARS-CoV-2 N Gene Negative; SARS-CoV-2 S Gene Negative; SARS-CoV-2 orf1ab Negative
[2020-02-19 11:51] LABS: Legionella Urinary Ag Negative (Negative); Strep pneumo Urine Ag NEGATIVE (NEGATIVE)
[2020-02-19] MEDS ORDERED: cefTRIAXone\\ROCEPHIN 2 GM in Sodium Chloride 0.9% 100 ML IVPB SCH (20:00)
[2020-02-19] MEDS ORDERED: Atorvastatin Calcium 20 MG TAB PO SCH (21:00)
[2020-02-19] MEDS: Enoxaparin Sodium 40 MG/0.4 ML SYRINGE SC SCH (21:01)
[2020-02-19] MEDS: guaiFENesin ER 600 MG TAB PO SCH (21:02)
[2020-02-20] MEDS: Albuterol 200 PUFF (6.7GM INHALER) INH SCH ×6 (03:58→22:01)
--- NOTE | 2020-02-20 06:33 | PDOC.FM ---
- Subjective Subjective: Ms. Villanueva is feeling better. Breathing well, just weaned off O2. Says nebs dont really help. Having clear productive cough, feels mucinex helping to loosen it up. Feels constipated. - Objective Vital Signs & Weight: Vital Signs (12 hours) Temp Pulse Resp BP BP Pulse Ox 02/20/20 03:55 97.8 F 73 18 144/70 H 92 L 02/20/20 00:00 97.8 F 65 18 143/69 H 92 L 02/19/20 20:00 98.5 F 71 18 125/67 92 L Weight Weight 68.991 kg I&O: 02/18/20 02/19/20 02/20/20 06:59 06:59 06:59 Intake Total 2200 Output Total 300 Balance 1900 Result Diagrams: 02/19/20 05:05 02/18/20 18:20 Phys Exam - Physical Examination Constitutional: NAD Respiratory: no wheezing, clear to auscultation bilateral (decreased breath sounds) Cardiovascular: RRR, no significant murmur Gastrointestinal: soft, non-tender Musculoskeletal: no edema Neurological: non-focal Psychiatric: normal affect Skin: normal turgor Dx/Plan - Plan Plan: Sepsis 2/2 COPD exacerbation, improved -WBC 12.2 and pt Tachypnic w/ RR in 20's initially -Strep and legionella urinary ag negative -COVID negative. Procal 0.1->0.1 -Rocephin 02/17. Discontinue azithro. Will transition to PO today. -Prednisone 40 mg daily x5 days -Duonebs sal and prn Diastolic CHF exacerbation, resolved -BNP elevated to 200 range. Reports some ankle swelling last few days. CXR shows some component of fluid overload. Likely contributing to SOB with COPD exacerbation. -ECHO 12/2017 showed preserved EF w/ grade 1/3 diastolic dysfunction -Request [facility] records as reportedly had complete normal workup a few months ago -Administered 1 dose 20 mg IV lasix. -strict I&Os, appears euvolemic now HTN -continued home meds -Hydralzine IV prn for pressures above systolic pressure above 180 Hx seizures -continue home meds Hx AAA Tobacco Abuse -counseled on cessation, patient plans to quit GERD ppx: tums prn DVT ppx: Lovenox Diet: HH Dispo: Just weaned off O2, transition to PO abx today, likely d/c tomorrow.
[2020-02-20] MEDS: guaiFENesin ER 600 MG TAB PO SCH ×2 (09:17→20:34)
[2020-02-20] MEDS: predniSONE 20 MG TAB PO SCH (09:17)
[2020-02-20] MEDS: Polyethylene Glycol 3350 17 GM Packet PO SCH ×2 (09:18→18:39)
[2020-02-20] MEDS: Clopidogrel Bisulfate 75 MG TAB PO SCH (09:18)
[2020-02-20] MEDS: levETIRAcetam 500 MG TAB PO SCH ×2 (09:18→20:33)
[2020-02-20] MEDS: Losartan 25 MG TAB PO SCH (09:24)
[2020-02-20] MEDS: Cefdinir 300 MG CAP PO SCH (20:33)
[2020-02-20] MEDS: Enoxaparin Sodium 40 MG/0.4 ML SYRINGE SC SCH (20:34)
[2020-02-20] MEDS ORDERED: Atorvastatin Calcium 40 MG TAB PO SCH (21:00)
[2020-02-21] MEDS: Albuterol 200 PUFF (6.7GM INHALER) INH SCH ×3 (02:10→10:40)
--- NOTE | 2020-02-21 06:33 | PDOC.FM ---
- Subjective Subjective: Ms. Villanueva is feeling well this morning. Denies SOB, difficulty breathing. She is ready to go home. - Objective Vital Signs & Weight: Vital Signs (12 hours) Temp Pulse Resp BP BP Pulse Ox 02/21/20 03:33 97.9 F 118 H 18 126/71 95 02/20/20 23:36 97.6 F 76 18 157/74 H 93 L 02/20/20 20:00 97.7 F 70 18 148/70 H 97 Weight Weight 71.078 kg I&O: 02/19/20 02/20/20 02/21/20 06:59 06:59 06:59 Intake Total 2200 970 Output Total 300 Balance 1900 970 Result Diagrams: 02/19/20 05:05 02/18/20 18:20 Phys Exam - Physical Examination Constitutional: NAD Respiratory: clear to auscultation bilateral Cardiovascular: RRR, no significant murmur Gastrointestinal: soft, non-tender Musculoskeletal: no edema Neurological: non-focal Dx/Plan - Plan Plan: Sepsis 2/2 COPD exacerbation, improved -WBC 12.2 and pt Tachypnic w/ RR in 20's initially -Strep and legionella urinary ag negative -COVID negative. Procal 0.1->0.1 -Discontinued azithro and rocephin. On omnicef. Today is day #4 of abx -Prednisone 40 mg daily x5 days -Duonebs sal and prn Diastolic CHF exacerbation, resolved -BNP elevated to 200 range. Reports some ankle swelling last few days. CXR shows some component of fluid overload. Likely contributing to SOB with COPD exacerbation. -ECHO 12/2017 showed preserved EF w/ grade 1/3 diastolic dysfunction -Request [facility] records as reportedly had complete normal workup a few months ago -Administered 1 dose 20 mg IV lasix. -strict I&Os, appears euvolemic now HTN -continued home meds -Hydralzine IV prn for pressures above systolic pressure above 180 Hx seizures -continue home meds Hx AAA Tobacco Abuse -counseled on cessation, patient plans to quit GERD ppx: tums prn DVT ppx: Lovenox Diet: HH Dispo: Plan for discharge today. Addendum - Attending - Attending Attestation Date/Time: 02/21/20 [id number] I personally evaluated the patient and discussed the management with [ Lakia] I agree with the History, Examination, Assessment and Plan documented above with any addition or exceptions noted below.
[2020-02-21] MEDS: levETIRAcetam 500 MG TAB PO SCH (08:01)
[2020-02-21] MEDS: guaiFENesin ER 600 MG TAB PO SCH (08:01)
[2020-02-21] MEDS: predniSONE 20 MG TAB PO SCH (08:01)
[2020-02-21] MEDS: Polyethylene Glycol 3350 17 GM Packet PO SCH (08:02)
[2020-02-21] MEDS: Cefdinir 300 MG CAP PO SCH (08:02)
[2020-02-21] MEDS: Clopidogrel Bisulfate 75 MG TAB PO SCH (08:02)
[2020-02-21] MEDS: Losartan 25 MG TAB PO SCH (09:04)
[2020-02-21 12:34] VITALS: BP 153/84; TEMP 97.9
--- NOTE | 2020-02-22 03:36 | DIS ---
DATE OF ADMISSION: 02/18/2020 DATE OF DISCHARGE: 02/21/2020 RESIDENT: Alma Dorman DO ADMITTING ATTENDING: Mayur Vogt MD DISCHARGE ATTENDING: Srinivasa Howard DO CONSULTS: None. PROCEDURES: 02/18/2020, chest x-ray showed perihilar and bibasilar interstitial prominence, small bilateral pleural effusions suggestive of pulmonary edema or infectious pneumonitis. PRIMARY DIAGNOSES: 1. Chronic obstructive pulmonary disease exacerbation. 2. Sepsis secondary to above. 3. Diastolic congestive heart failure exacerbation, resolved. SECONDARY DIAGNOSES: 1. Hypertension. 2. History of seizures. 3. History of abdominal aortic aneurysm. 4. Tobacco abuse. DISCHARGE MEDICATIONS: 1. Losartan 100 mg p.o. daily. 2. Phenytoin 300 mg p.o. at bedtime. 3. Metoprolol 150 mg p.o. at bedtime. 4. Plavix 75 mg p.o. daily. 5. Keppra 750 mg p.o. b.i.d. 6. Lipitor 40 mg p.o. at bedtime. 7. Amlodipine 10 mg p.o. daily. 8. Docusate one tablet p.o. at bedtime. 9. Cefdinir 300 mg p.o. b.i.d., #8. 10. Mucinex 600 mg p.o. q.12 hours, #20. 11. Prednisone 40 mg p.o. q.a.m. Discontinued medications, none. HOSPITAL COURSE: An 79-year-old female, with history of tobacco abuse, presented with worsening shortness of breath for one day. Noted coughing clear mucus. No fevers, chills, or chest pain. Noted that she had recently completed treatment for a UTI. She lives at [facility]. COVID negative. COPD exacerbation and infectious pneumonitis were suspected. Strep and Legionella urinary antigens were negative. She was started on Rocephin and azithromycin inpatient, which was then transitioned to oral Omnicef to complete a 7-day course in the outpatient setting. Additionally, she was given prednisone and was prescribed to complete a 5-day course. She received DuoNeb inpatient, though she said that these did not improve her symptoms. She was quickly weaned off oxygen and had no other respiratory complaints. She was given 20 mg of Lasix in the emergency department, did not require further diuresis. Dr. Bui had reportedly done a complete cardiac workup in the prior month, which was normal according to the patient and this included an echocardiogram. Patient denies ever having a COPD exacerbation in the past, though she has a very long history of smoking and says that she plans to quit immediately upon discharge. Has never required inhalers. Patient may benefit from spirometry outpatient to assess lung status. DISPOSITION: Stable. DISCHARGE INSTRUCTIONS: Location: Home. Diet: Heart healthy. Activity: As tolerated. Followup: Follow up with primary care physician, Dr. Denny, within 7 days. Job ID: [id number] [facility]
--- NOTE | 2020-02-23 16:42 | PQF ---
MAGGIE FISHERAlmar [id number] CLINICAL DOCUMENTATION IMPROVEMENT CLARIFICATION FORM: ICD-10 Updated PLEASE DO AN ADDENDUM TO THE PROGRESS NOTE WITH ANY DOCUMENTATION UPDATES OR ADDITIONS AND CARRY THROUGH TO DC SUMMARY. THANK YOU. DATE: DR. Rosario BARAKAT ATTN:DR. Rosario BARAKAT Please exercise your independent, professional judgment in responding to the clarification form. Clinical indicators are provided on the bottom of this form for your review. Please check appropriate box(s) to clarify if the following diagnosis has been ruled in or ruled out: PNEUMONIA [ ] Ruled in diagnosis [ ] Continue to treat [ ] Resolved [ x ] Ruled out diagnosis [ ] Cannot rule out diagnosis [ ] Other diagnosis [ ] Unable to determine In addition, please specify: Present on Admission (POA): [ ] Yes [ ] No [ ] Unable to determine For continuity of documentation, please document condition throughout progress notes and discharge summary. Thank You. CLINICAL INDICATORS - SIGNS / SYMPTOMS / LABS / RESULTS AND LOCATION IN MR 02/17 ED REPORT : PRESENTS FOR SOB, PRODUCTIVE COUGH, DENIES FEVER OR SORE THROAT// RESP 26, TEMP 100.2 , 92% RA > 98% 2L/NC// ED PHYSICIAN FINAL DX : COMMUNITY -ACQUIRED PNEUMONIA, COPD EXACERBATION, HYPOXIA, SEPSIS 02/20 DISCHARGE SUMMARY ( [facility]UVAL) PROCEDURES: CHEST X-RAY SHOWED PRE-HILAR AND BIBASILAR INTERSTITIAL PROMINENCE, SMALL BILATERAL PLEURAL EFFUSIONS SUGGESTIVE OF PULMONARY EDEMA OR INFECTIOUS PNEUMONITIS. RISK: SEPSIS, COPD EXACERBATION, TOBACCO USE X 30 YEARS, ADVANCED AGE (79) ( H&P/ KLECAN) 02/17 TREATMENTS: SUPPLEMENTAL OXYGEN ( 02/17-02/18) ROCEPHIN IV ( 02/18) THANK YOU! VAHE (This form is maintained as a part of the permanent medical record) 2014 [employer] All Rights Reserved CHERELLE [email or web address]
== END 2020-02-21 12:30 | disposition home or self-care (01) | DRG 871 ==
LOC: ERS 17:36 → INTOOBSV 20:20 → 2SW 20:20 → T4-B 02-19 17:10
PROVIDERS: ADMIT Family Medicine; ATTEND Family Medicine
DX: A41.9 Sepsis, unspecified organism (principal); I50.33 Acute on chronic diastolic (congestive) heart failure; J44.1 Chronic obstructive pulmonary disease with (acute) exacerbation; J44.0 Chronic obstructive pulmonary disease with (acute) lower respiratory infection; Z20.828 Contact with and (suspected) exposure to other viral communicable diseases; F17.210 Nicotine dependence, cigarettes, uncomplicated; I11.0 Hypertensive heart disease with heart failure; G40.909 Epilepsy, unspecified, not intractable, without status epilepticus; Z90.49 Acquired absence of other specified parts of digestive tract; Z90.710 Acquired absence of both cervix and uterus; Z79.01 Long term (current) use of anticoagulants; Z88.1 Allergy status to other antibiotic agents
CPT/HCPCS: 36415; 71045; 80053; 83605; 83880; 84145; 84484; 85025; 87040; 87449; 87635; 87804; 87899; 93005; 96365; 96366; 96375; J0456; J0696; J1650; J1940; J2930; J3490; J7512; J7620; U0003

== ENCOUNTER 2023-01-03 14:50 | Inpatient (IN) | payer MEDICARE ==
[2023-01-03] MEDS ORDERED: Ipratropium/Albuterol 3 ML NEB ONE (15:21)
[2023-01-03] MEDS ORDERED: Iopamidol-370 76% 500 ML MDV (1 ML CHARGE) ONE (15:42)
[2023-01-03 15:45] LABS: #Eosinphils 0.1 thou/uL (0.0-0.7); #Lymphocytes 1.3 thou/uL (1.20-3.40); #Monocytes 0.7 thou/uL (0.11-0.59); #Neutrophils 6.5 thou/uL (1.40-6.50); %Basophils 0.1 % (0.0-1.0); %Eosinophils 1.2 % (0.0-10.0); %Lymphocytes 15.3 % (21.0-51.0); %Monocytes 7.8 % (0.0-10.0); %Neutrophils 75.7 % (42.0-75.0); Hemoglobin 12.7 g/dL (12.0-16.0); Mean Corpuscular HGB CONC 33.2 g/dL (32.0-36.0); Mean Corpuscular Volume 90.3 fl (78.0-98.0); Mean Platelet Volume 9.5 fL (7.4-10.4); Platelet Count 176 10x3/uL (130-400); RBC Distribution Width 13.4 % (11.5-14.5); Red Blood Cell (RBC) Count 4.24 mill/uL (4.20-5.40); White Blood Cell (WBC) Count 8.5 10x3/uL (4.8-10.8)
[2023-01-03 15:54] LABS: INR-International Normal Ratio 1.4; PTT 41.6 sec (22.9-36.1); Prothrombin Time 17.3 sec (12.0-14.7)
[2023-01-03 16:05] LABS: ALT (SGPT) 16 U/L (8-55); AST (SGOT) 23 U/L (5-34); Albumin 3.6 g/dL (3.4-4.8); Alkaline Phosphatase 141 U/L (40-110); Anion Gap 15 mmol/L (10-20); BUN (Urea Nitrogen) 33 mg/dL (9.8-20.1); Bilirubin, Total 0.4 mg/dL (0.2-1.2); Calc. Creatinine Clearance 0 mL/min (70-130); Calcium 8.7 mg/dL (7.8-10.44); Carbon Dioxide 22 mmol/L (23-31); Chloride 107 mmol/L (98-107); Estimated GFR 38; Globulin 2.9 g/dL (2.4-3.5); Glucose 106 mg/dL (83-110); Potassium 4.4 mmol/L (3.5-5.1); Protein, Total 6.5 g/dL (5.8-8.1); Sodium 140 mmol/L (136-145)
[2023-01-03 16:50] LABS: Bilirubin Negative (Negative); Blood, Urine Negative (Negative); Clarity Clear (Clear); Glucose, Urine (Dipstick) Normal (Negative); Ketone, Urine Negative (Negative); Leukocyte Negative Leu/uL (Negative); Nitrite Negative (Negative); Protein, Urine (Dipstick) 20 mg/dL (Neg-Trace); Specific Gravity, Urine 1.017 (1.002-1.036); Urobilinogen Normal mg/dL (Less than 2); pH, Urine 5.5 (5.0-9.0)
[2023-01-03] MEDS ORDERED: methylPREDNISolone Sod Succ/PF 125 MG/2 ML VIAL ONE (17:21)
[2023-01-03] MEDS ORDERED: Azithromycin 500 MG VIAL ONE (17:21)
[2023-01-03] MEDS ORDERED: cefTRIAXone (ROCEPHIN) 2 GM VIAL ONE (17:21)
[2023-01-03 18:44] LABS: Lactic Acid 0.9 mmol/L (0.5-2.2)
[2023-01-03] MEDS ORDERED: Ipratropium/Albuterol 3 ML NEB NEB PRN (18:44)
[2023-01-03] MEDS ORDERED: Acetaminophen 325 MG TAB PO PRN (18:44)
[2023-01-03 18:46] LABS: Troponin I Less than 0.010 ng/mL (< 0.028)
[2023-01-03 21:34] VITALS: BMI 24.5
[2023-01-03 22:15] LABS: Troponin I 0.012 ng/mL (< 0.028)
[2023-01-04] MEDS: guaiFENesin ER 600 MG TAB PO SCH ×3 (04:03→20:53)
[2023-01-04 05:29] LABS: Anion Gap 13 mmol/L (10-20); BUN (Urea Nitrogen) 30 mg/dL (9.8-20.1); Calc. Creatinine Clearance 39 mL/min (70-130); Calcium 8.3 mg/dL (7.8-10.44); Carbon Dioxide 20 mmol/L (23-31); Chloride 109 mmol/L (98-107); Estimated GFR 52; Glucose 130 mg/dL (83-110); Potassium 4.1 mmol/L (3.5-5.1); Sodium 138 mmol/L (136-145)
[2023-01-04] MEDS: levETIRAcetam 500 MG TAB PO SCH ×2 (09:23→20:49)
[2023-01-04] MEDS: Amlodipine 5 MG TAB PO SCH (09:23)
[2023-01-04] MEDS: predniSONE 20 MG TAB PO SCH (09:23)
[2023-01-04 13:15] LABS: Dilantin 11.1 ug/mL (10.0-20.0)
[2023-01-04] MEDS ORDERED: Losartan 25 MG TAB PO SCH (16:00)
[2023-01-04] MEDS ORDERED: Acetaminophen 500 MG TAB PO SCH (20:45)
[2023-01-04] MEDS: Atorvastatin Calcium 40 MG TAB PO SCH (20:49)
[2023-01-04] MEDS: Phenytoin Extended Release 100 MG CAP PO SCH (20:50)
[2023-01-04 21:51] LABS: Troponin I 0.012 ng/mL (< 0.028)
[2023-01-04] MEDS ORDERED: Nitroglycerin 0.4 MG TAB (25 Tab Bottle) SL PRN (22:19)
[2023-01-04] MEDS ORDERED: Furosemide 20 MG TAB PO SCH (22:45)
[2023-01-04] MEDS ORDERED: traMADol HCl 50 MG TAB PO SCH (23:30)
[2023-01-05] MEDS ORDERED: Morphine 2 MG/ML VIAL SLOW IVP SCH (01:15)
[2023-01-05 05:59] LABS: #Basophils 0.1 thou/uL (0.0-0.2); #Eosinphils 0.1 thou/uL (0.0-0.7); #Lymphocytes 2.2 thou/uL (1.20-3.40); #Monocytes 1.2 thou/uL (0.11-0.59); %Basophils 0.7 % (0.0-1.0); %Eosinophils 0.5 % (0.0-10.0); %Lymphocytes 17.6 % (21.0-51.0); %Monocytes 9.9 % (0.0-10.0); %Neutrophils 71.4 % (42.0-75.0); Hemoglobin 12.9 g/dL (12.0-16.0); Mean Corpuscular HGB CONC 33.7 g/dL (32.0-36.0); Mean Corpuscular Hemoglobin 30.8 pg (27.0-31.0); Mean Corpuscular Volume 91.4 fl (78.0-98.0); Mean Platelet Volume 9.4 fL (7.4-10.4); Platelet Count 174 10x3/uL (130-400); RBC Distribution Width 13.8 % (11.5-14.5); Red Blood Cell (RBC) Count 4.19 mill/uL (4.20-5.40); White Blood Cell (WBC) Count 12.5 10x3/uL (4.8-10.8)
[2023-01-05 06:19] LABS: Anion Gap 16 mmol/L (10-20); BUN (Urea Nitrogen) 39 mg/dL (9.8-20.1); Calc. Creatinine Clearance 31 mL/min (70-130); Calcium 8.4 mg/dL (7.8-10.44); Carbon Dioxide 18 mmol/L (23-31); Chloride 106 mmol/L (98-107); Estimated GFR 39; Glucose 130 mg/dL (83-110); Potassium 4.2 mmol/L (3.5-5.1); Sodium 136 mmol/L (136-145)
[2023-01-05] MEDS: guaiFENesin ER 600 MG TAB PO SCH ×2 (10:10→20:25)
[2023-01-05] MEDS: levETIRAcetam 500 MG TAB PO SCH ×2 (10:10→20:25)
[2023-01-05] MEDS: predniSONE 20 MG TAB PO SCH (10:10)
[2023-01-05] MEDS: Amlodipine 5 MG TAB PO SCH (10:11)
[2023-01-05] MEDS: Losartan 25 MG TAB PO SCH (10:12)
[2023-01-05] MEDS: Atorvastatin Calcium 40 MG TAB PO SCH (20:25)
[2023-01-05] MEDS: Phenytoin Extended Release 100 MG CAP PO SCH (20:26)
[2023-01-06 05:15] LABS: #Lymphocytes 2.2 thou/uL (1.20-3.40); #Monocytes 1.3 thou/uL (0.11-0.59); #Neutrophils 7.5 thou/uL (1.40-6.50); %Basophils 0.1 % (0.0-1.0); %Eosinophils 0.2 % (0.0-10.0); %Lymphocytes 19.5 % (21.0-51.0); %Monocytes 11.6 % (0.0-10.0); %Neutrophils 68.5 % (42.0-75.0); Hemoglobin 11.9 g/dL (12.0-16.0); Mean Corpuscular HGB CONC 35.4 g/dL (32.0-36.0); Mean Corpuscular Hemoglobin 31.7 pg (27.0-31.0); Mean Corpuscular Volume 89.7 fl (78.0-98.0); Mean Platelet Volume 9.9 fL (7.4-10.4); Platelet Count 132 10x3/uL (130-400); RBC Distribution Width 13.6 % (11.5-14.5); Red Blood Cell (RBC) Count 3.75 mill/uL (4.20-5.40)
[2023-01-06 05:44] LABS: Anion Gap 14 mmol/L (10-20); BUN (Urea Nitrogen) 36 mg/dL (9.8-20.1); Calc. Creatinine Clearance 34 mL/min (70-130); Calcium 8.4 mg/dL (7.8-10.44); Carbon Dioxide 19 mmol/L (23-31); Chloride 106 mmol/L (98-107); Estimated GFR 44; Glucose 119 mg/dL (83-110); Sodium 135 mmol/L (136-145)
[2023-01-06] MEDS: predniSONE 20 MG TAB PO SCH (09:39)
[2023-01-06] MEDS: levETIRAcetam 500 MG TAB PO SCH ×2 (09:40→21:12)
[2023-01-06] MEDS: guaiFENesin ER 600 MG TAB PO SCH ×2 (09:40→21:12)
[2023-01-06] MEDS: Amlodipine 5 MG TAB PO SCH (09:40)
[2023-01-06] MEDS: Losartan 25 MG TAB PO SCH (09:41)
[2023-01-06] MEDS ORDERED: hydrALAZINE 20 MG/ML VIAL SLOW IVP PRN (10:06)
[2023-01-06] MEDS: Phenytoin Extended Release 100 MG CAP PO SCH (21:13)
[2023-01-06] MEDS: Atorvastatin Calcium 40 MG TAB PO SCH (21:13)
[2023-01-07 05:04] LABS: #Neutrophils 5.1 thou/uL (1.40-6.50); %Basophils 0.2 % (0.0-1.0); %Eosinophils 0.4 % (0.0-10.0); %Lymphocytes 24.3 % (21.0-51.0); %Monocytes 12.2 % (0.0-10.0); %Neutrophils 62.9 % (42.0-75.0); Mean Corpuscular HGB CONC 33.3 g/dL (32.0-36.0); Mean Corpuscular Volume 90.2 fl (78.0-98.0); Mean Platelet Volume 10.5 fL (7.4-10.4); Platelet Count 114 10x3/uL (130-400); RBC Distribution Width 13.8 % (11.5-14.5); Red Blood Cell (RBC) Count 3.66 mill/uL (4.20-5.40); White Blood Cell (WBC) Count 8.2 10x3/uL (4.8-10.8)
[2023-01-07 05:56] LABS: Anion Gap 13 mmol/L (10-20); BUN (Urea Nitrogen) 33 mg/dL (9.8-20.1); Calc. Creatinine Clearance 39 mL/min (70-130); Carbon Dioxide 20 mmol/L (23-31); Chloride 108 mmol/L (98-107); Estimated GFR 52; Glucose 93 mg/dL (83-110); Potassium 4.1 mmol/L (3.5-5.1); Sodium 137 mmol/L (136-145)
[2023-01-07] MEDS: Amlodipine 5 MG TAB PO SCH (08:20)
[2023-01-07] MEDS: predniSONE 20 MG TAB PO SCH (08:21)
[2023-01-07] MEDS: levETIRAcetam 500 MG TAB PO SCH (08:21)
[2023-01-07] MEDS: guaiFENesin ER 600 MG TAB PO SCH (08:21)
[2023-01-07 16:08] VITALS: BP 134/62; TEMP 97.5
== END 2023-01-07 17:09 | disposition home health service (06) | DRG 189 ==
LOC: ERS 14:50 → 2NO 17:33
PROVIDERS: ADMIT Student in an Organized Health Care Education/Training Program; ATTEND Student in an Organized Health Care Education/Training Program
DX: J96.01 Acute respiratory failure with hypoxia (principal); J44.1 Chronic obstructive pulmonary disease with (acute) exacerbation; J90 Pleural effusion, not elsewhere classified; I31.39 Other pericardial effusion (noninflammatory); N17.9 Acute kidney failure, unspecified; G40.909 Epilepsy, unspecified, not intractable, without status epilepticus; I73.9 Peripheral vascular disease, unspecified; I10 Essential (primary) hypertension; Z95.0 Presence of cardiac pacemaker; Z88.1 Allergy status to other antibiotic agents; Z79.899 Other long term (current) drug therapy; Z87.891 Personal history of nicotine dependence; Z79.51 Long term (current) use of inhaled steroids
CPT/HCPCS: 36415; 71045; 71275; 80048; 80053; 80185; 81003; 83605; 83880; 84145; 84484; 85025; 85610; 85730; 87040; 87086; 93005; 93010; 93306; 94760; J0360; J0456; J0696; J1650; J2272; J2930; J7512; J7620; Q9967

== ENCOUNTER 2024-07-02 20:04 | Emergency (ER) | payer MEDICARE, OTHER ==
[2024-07-02] MEDS ORDERED: Lidocaine 1% w/Epinephrine 1:100K 20 ML VIAL ONE (20:17)
[2024-07-02] MEDS ORDERED: Bacitracin 1 PK ONE (21:12)
== END 2024-07-02 22:05 | disposition home or self-care (01) ==
LOC: ERS 20:04
DX: S01.511A Laceration without foreign body of lip, initial encounter (principal); S61.411A Laceration without foreign body of right hand, initial encounter; S16.1XXA Strain of muscle, fascia and tendon at neck level, initial encounter; S09.90XA Unspecified injury of head, initial encounter; I10 Essential (primary) hypertension; W19.XXXA Unspecified fall, initial encounter; Z87.891 Personal history of nicotine dependence; Z79.899 Other long term (current) drug therapy
CPT/HCPCS: 70450; 70486; 72125